=== PATIENT | female | born 1950 | race African-American/Black ===

== ENCOUNTER 2016-12-10 09:52 | Emergency (ER) | payer MEDICARE ==
[~2016-12-10] VITALS: Ht 170.2 cm; Wt 88.0 kg
[~2016-12-10 09:52] MED LIST: CLOP75TA28; EZET10TA2 PO; GABA300C PO; METF-316 PO; METF1000 PO; QUIN10TA PO; TRAM-297
[2016-12-10 10:17] VITALS: BP 187/84
[2016-12-10] MEDS ORDERED: KETOROLAC TROMETH 60MG/2ML VIAL IM ONE (10:45)
== END 2016-12-10 11:04 | disposition home or self-care (01) ==
LOC: ER 09:58
DX: G89.29 Other chronic pain (principal); M54.5 Low back pain; M67.442 Ganglion, left hand; I10 Essential (primary) hypertension; E11.9 Type 2 diabetes mellitus without complications; E78.5 Hyperlipidemia, unspecified; I25.2 Old myocardial infarction; Z86.73 Personal history of transient ischemic attack (TIA), and cerebral infarction without residual deficits; Z98.61 Coronary angioplasty status; Z98.51 Tubal ligation status
CPT/HCPCS: 96372; 99283; J1885